=== PATIENT | male | born 1970 | race Caucasian/White ===

== ENCOUNTER 2020-04-01 21:55 | Emergency (ER) | payer BC ==
[~2020-04-01] VITALS: Ht 172.7 cm; Wt 99.8 kg
[2020-04-01 22:00] VITALS: BP_SYST 124
[2020-04-01] MEDS ORDERED: ONDANSETRON HCL 4 MG/2 ML VIAL IVP ONE (22:00)
[2020-04-01] MEDS ORDERED: NACL 0.9% 1,000 ML IV ONE (22:00)
[2020-04-01] MEDS ORDERED: LOSA100T3 PO (22:57)
[2020-04-01 23:09] LABS: BASOPHILS % (AUTO) 0.4 % (0.0-2.0); HEMATOCRIT 47.8 % (36-54); HEMOGLOBIN 16.3 g/dL (14.0-18.0); LYMPHOCYTES # (AUTO) 1.2 K/uL (1.0-5.5); LYMPHOCYTES % (AUTO) 19.6 % (20.5-51.5); MEAN CORPUSCULAR HEMOGLOBIN 31 pg (27-31); MEAN CORPUSCULAR HGB CONC 34 % (32-36); MEAN CORPUSCULAR VOLUME 92 fL (79.0-98.0); MONOCYTES # (AUTO) 0.5 K/uL (0.0-1.0); MONOCYTES % (AUTO) 8.7 % (1.7-9.3); NEUTROPHILS # (AUTO) 4.4 K/uL (1.8-7.7); NEUTROPHILS % (AUTO) 71.3 % (40.0-70.0); PLATELET COUNT (AUTO) 128 K/uL (130-430); RED BLOOD CELL COUNT(AUTO) 5.22 MIL/uL (4.2-6.2); RED CELL DISTRIBUTION WIDTH 13.2 % (9.0-15.0); WHITE BLOOD COUNT (AUTO) 6.1 K/uL (4.8-10.8)
[2020-04-01 23:23] LABS: CALCIUM 8.4 mg/dL (8.4-11.0); CREATININE 1.25 mg/dL (0.55-1.30); POTASSIUM 3.1 mmol/L (3.5-5.1)
[2020-04-01 23:29] LABS: ALBUMIN 3.8 g/dL (3.4-4.8); TOTAL BILIRUBIN 1.7 mg/dL (0.0-1.0)
[2020-04-02 00:02] VITALS: BP_SYST 124
== END 2020-04-02 00:02 | disposition home or self-care (01) ==
LOC: SED 21:55
DX: R05 Cough (principal); R11.2 Nausea with vomiting, unspecified; R19.7 Diarrhea, unspecified; Z03.818 Encounter for observation for suspected exposure to other biological agents ruled out
CPT/HCPCS: 36415; 71045; 80053; 85025; 87426; 96361; 96374; 99284; C9803; J2405; J7030; U0003

== ENCOUNTER 2020-04-03 18:59 | Emergency (ER) | payer BC, SELFPAY ==
[~2020-04-03] VITALS: Ht 172.7 cm; Wt 104.3 kg
[~2020-04-03 18:59] MED LIST: LOSA100T3 PO
[2020-04-03 19:20] VITALS: BP_SYST 145
--- NOTE | 2020-04-03 19:20 | NUR ---
Patient to ER bed 3 to gown for evaluation. Side rails up.
--- NOTE | 2020-04-03 19:21 | NUR ---
Patient came to ER with family. C/O Nausea, vomitting and diarrhea x 5 days. Patient came to ER for same symptoms on 04/01/2020 and discharged home with Lomotil and couldn't refill meds. Patient states " can't keep anything down , vomitting 6 times and diarrhea 10 times today." Hx HTN.
--- NOTE | 2020-04-03 19:25 | NUR ---
ALINA Lam at bedside examining patient.
[2020-04-03] MEDS: NACL 0.9% 1,000 ML IV ONE (19:43)
[2020-04-03] MEDS: ONDANSETRON HCL 4 MG/2 ML VIAL IVP ONE (19:44)
[2020-04-03 19:48] LABS: BASOPHILS % (AUTO) 0.8 % (0.0-2.0); HEMATOCRIT 43.7 % (36-54); HEMOGLOBIN 15.1 g/dL (14.0-18.0); LYMPHOCYTES # (AUTO) 0.7 K/uL (1.0-5.5); LYMPHOCYTES % (AUTO) 15.3 % (20.5-51.5); MEAN CORPUSCULAR HEMOGLOBIN 31 pg (27-31); MEAN CORPUSCULAR HGB CONC 35 % (32-36); MEAN CORPUSCULAR VOLUME 90 fL (79.0-98.0); MONOCYTES # (AUTO) 0.3 K/uL (0.0-1.0); MONOCYTES % (AUTO) 7.4 % (1.7-9.3); NEUTROPHILS # (AUTO) 3.5 K/uL (1.8-7.7); NEUTROPHILS % (AUTO) 76.5 % (40.0-70.0); PLATELET COUNT (AUTO) 91 K/uL (130-430); RED BLOOD CELL COUNT(AUTO) 4.83 MIL/uL (4.2-6.2); RED CELL DISTRIBUTION WIDTH 13.3 % (9.0-15.0); WHITE BLOOD COUNT (AUTO) 4.6 K/uL (4.8-10.8)
[2020-04-03] MEDS: LOPERAMIDE HCL 2 MG CAPSULE PO ONE (19:50)
--- NOTE | 2020-04-03 19:55 | NUR ---
Swabbed Covid*19 and sent to lab.
[2020-04-03 20:21] LABS: CALCIUM 8.1 mg/dL (8.4-11.0); CREATININE 1.22 mg/dL (0.55-1.30); POTASSIUM 3.4 mmol/L (3.5-5.1)
[2020-04-03 20:27] LABS: ALBUMIN 3.6 g/dL (3.4-4.8); TOTAL BILIRUBIN 1.6 mg/dL (0.0-1.0)
[2020-04-03 21:21] VITALS: BP_SYST 125
--- NOTE | 2020-04-03 21:21 | NUR ---
Patient given written and verbal discharge instructions and verbalizes understanding. ER MD discussed with patient the results and treatment provided. Patient in stable condition. ID arm band removed. IV catheter removed intact and dressing applied, no active bleeding. Rx of Zofran, Lomotil and Promethazine given. Patient educated on pain management and to follow up with PMD. Pain Scale 1/10. Opportunity for questions provided and answered. Medication side effect fact sheet provided.
== END 2020-04-03 21:21 | disposition home or self-care (01) ==
LOC: SED 18:59
DX: R11.2 Nausea with vomiting, unspecified (principal); R19.7 Diarrhea, unspecified; I10 Essential (primary) hypertension; R05 Cough; Z20.828 Contact with and (suspected) exposure to other viral communicable diseases
CPT/HCPCS: 36415; 80053; 83690; 85025; 96361; 96374; 99285; C9803; J2405; J7030; U0003; 99283

== ENCOUNTER → 2021-11-27 | Emergency (ER) | payer BC ==
[~2021-11-27] MED LIST changes: +FLUORESCEIN SODIUM 1 MG OPHTHALMIC STRIP OP ONE; +KETOROLAC TROMETHAMINE 30 MG VIAL IVP ONE; +NACL 0.9% 1,000 ML IV ONE
--- NOTE | 2021-11-27 01:48 | NUR ---
PT LEFT WITHOUT BEING SEEN. AND PT STATE THEY DONT WANT TO WAIT. ADVISED TO AT LEAST GET TRAIGED. THEY DECIDED TO LEAVE TO OTHER HOSPITAL.
== END | disposition left against medical advice (07) ==
LOC: SED 01:46
DX: N20.0 Calculus of kidney (principal); Z53.21 Procedure and treatment not carried out due to patient leaving prior to being seen by health care provider